=== PATIENT | female | born 1950 | race Hispanic/Latino ===

== ENCOUNTER → 2019-06-30 | Day surgery (SDC) | payer MEDICARE ==
[~2019-06-30] MED LIST: ATORVASTATIN CA10 MG PO; GLIMEPIRIDE4 MG PO; INSULIN REGULAR, HUMAN 100 UNIT/1 ML 3ML VIAL ONE; IRBESARTAN-HCT1 EAC1 PO; LANTUS 3ML100 UNITS/ PO; LANTUS 3ML100 UNITS/ SC; LEVEMIR100 UNIT/1 SQ; METOPROLOL SUCC25 MG PO; NOVOLIN 70100 UNIT/3 SC; NOVOLOG100 UNIT/1 SQ; PROPOFOL IV EMULSION 10 MG/ML 50 ML VIAL ONE; metoprolol PO
[2019-06-30 13:38] VITALS: BP 136/73
== END | disposition home or self-care (01) ==
LOC: OR 10:24
PROVIDERS: ATTEND Internal Medicine Gastroenterology
DX: Z12.11 Encounter for screening for malignant neoplasm of colon (principal); K59.00 Constipation, unspecified; K30 Functional dyspepsia; K28.9 Gastrojejunal ulcer, unspecified as acute or chronic, without hemorrhage or perforation; K21.9 Gastro-esophageal reflux disease without esophagitis; E11.9 Type 2 diabetes mellitus without complications; I10 Essential (primary) hypertension; R06.83 Snoring; Z88.8 Allergy status to other drugs, medicaments and biological substances; Z79.4 Long term (current) use of insulin; Z79.84 Long term (current) use of oral hypoglycemic drugs; Z79.82 Long term (current) use of aspirin; Z68.36 Body mass index [BMI] 36.0-36.9, adult
CPT/HCPCS: 36415; 82948; G0121; J2704; 45378; J1817